=== PATIENT | female | born 1965 | race Caucasian/White ===

== ENCOUNTER → 2017-07-05 | Outpatient (CLI) | payer BC, OTHER ==
[2016-09-27 12:56] VITALS: BP 147/94
[~2017-07-05] MED LIST: DULO60CA6 PO; ESTR0.62 PO; HYDR-971 PO; METH-37 PO; MULT1TAB52 PO; OMEG1CAP30 PO; ZOLP10TA PO
--- NOTE | 2017-07-09 10:50 | RAD ---
2 AP abdominal radiographs one from 07/05/2017 and the second from 07/09/2017 Clinical indication: Sitz marker test. Comparison: CT abdomen and pelvis July 22, 2014. Findings: Initial AP radiograph of the abdomen on July 05, 2017 demonstrates a nonobstructive bowel gas pattern with a large amount of retained stool throughout the colon. Subsequent AP radiograph 4 days post ingestion of Sitzmarks markers demonstrates 9 Sitzmarks markers in the colon located in the descending and sigmoid colon and at the rectosigmoid junction. There remains a large amount of retained stool throughout the large bowel and rectum. Impression: 1. Sitzmarks marker studies with approximately 9 remaining markers in the descending and sigmoid colon. 2. No radiographic evidence of bowel obstruction, however large amount of retained colonic stool which may contribute to constipation.
== END | disposition home or self-care (01) ==
LOC: RAD 08:09
PROVIDERS: ATTEND Internal Medicine Gastroenterology
DX: K59.00 Constipation, unspecified (principal)
CPT/HCPCS: 74250

== ENCOUNTER → 2017-12-13 | Outpatient (CLI) | payer BC | END | disposition home or self-care (01) | LOC: KCIC MAMMO 08:10 | DX: Z12.31 Encounter for screening mammogram for malignant neoplasm of breast (principal) | CPT/HCPCS: 77063; 77067 ==

== ENCOUNTER → 2019-06-12 | Outpatient (CLI) | payer BC ==
[2016-09-27 12:56] VITALS: BP 147/94
[~2019-06-12] MED LIST changes: +HYDR-3164 PO; -HYDR-971 PO
--- NOTE | 2019-06-12 11:19 | KCIC ---
Bilateral digital screening mammograms with 3-D tomosynthesis: Reason for examination: Routine screening. Comparison is made to previous studies dated 12/13/2017 and 05/29/2015. Bilateral mammograms in CC and oblique projections were obtained with 2-D imaging and 3-D tomosynthesis imaging on a Siemens Inspiration unit and reviewed on the workstation. Interpretation was made with the benefit of CAD. The skin and nipples show no abnormalities. No abnormal axillary lymph nodes are seen. The breast parenchyma is heterogeneously dense. (Breast density: Category C.) There are no dominant masses, suspicious calcifications or architectural distortion. Impression: No evidence of malignancy. Recommend routine screening. Your patient's mammogram demonstrates that she has dense breast tissue (breast density category C or D), which could hide abnormalities, and if she has other risk factors for breast cancer that have been identified, she might benefit from supplemental screening tests that may be suggested by you as her ordering physician. Dense breast tissue, in and of itself, is a relatively common condition. Therefore, this information is not provided to cause undue concern, but rather to raise your awareness and to promote discussion with your patient regarding the presence of other risk factors, in addition to dense breast tissue. Your patient's mammography results will be sent to her. BI-RAD Category 1: Negative. "Our facility is accredited by the [employer] Mammography [employer]." This patient's information has been entered into a reminder system for the patient to be notified with the results of her examination and a target date for the next mammogram. Electronically signed by: Roxane Huff MD (06/12/2019 11:17 AM) [facility]
== END | disposition home or self-care (01) ==
LOC: KCIC MAMMO 08:45
DX: Z12.31 Encounter for screening mammogram for malignant neoplasm of breast (principal)
CPT/HCPCS: 77063; 77067

== ENCOUNTER → 2021-10-29 | Outpatient (CLI) | payer BC ==
[2021-10-29] VITALS (11 sets, daily range): BP systolic 84–115; BP diastolic 59–82
[~2021-10-29] VITALS: Ht 165.1 cm; Wt 81.8 kg
[~2021-10-29] MED LIST changes: +AMIT75TA PO; +CETI10TA74 PO; +DEXM30CP PO; +DOXE50CA PO; -DULO60CA6 PO; +DULO60CA7 PO; +HEPARIN for IV BOLUS 10,000 UNIT/10 ML VIAL. IART ONE; +HEPARIN for IV BOLUS 10,000 UNIT/10 ML VIAL. ONE; +IODIXANOL 320 MG/ML 100 ML VIAL. IART ONE; +IODIXANOL 320 MG/ML 100 ML VIAL. ONE; +IV 1/2 NORMAL SALINE 1,000 ML IV SCH; +LEVO125T5 PO; +LIDOCAINE 1% PF 2 ML VIAL. INJ ONE; +LIDOCAINE 1% PF 2 ML VIAL. ONE; +METH454P PO; +MIDAZOLAM HCL/PF 5 MG/5 ML VIAL. IV ONE; +MIDAZOLAM HCL/PF 5 MG/5 ML VIAL. ONE; +MULT-445 PO; -MULT1TAB52 PO; +NITROGLYCERIN 200 MCG/2 ML SYRINGE FOR CATH/VASC LAB. IART ONE; +NITROGLYCERIN 200 MCG/2 ML SYRINGE FOR CATH/VASC LAB. ONE; +PHEN37.53 PO; +SERT100T PO; +VERAPAMIL 5 MG/2 ML VIAL. IART ONE; +VERAPAMIL 5 MG/2 ML VIAL. ONE; +fentaNYL PF VIAL 100 MCG/2 ML VIAL IV ONE; +fentaNYL PF VIAL 100 MCG/2 ML VIAL ONE
[2021-10-29 08:14] LABS: HEMATOCRIT 45.4 % (36.0-47.0); HEMOGLOBIN 15.2 g/dL (12.0-15.5); RED BLOOD COUNT 5.18 x10^6/uL (3.50-5.40); RED CELL DISTRIBUTION WIDTH 14.3 % (11.5-14.5); WHITE BLOOD COUNT 9.7 x10^3/uL (4.0-11.0)
[2021-10-29 08:25] LABS: CALCIUM 9.5 mg/dL (8.5-10.1); GFR 57.1; POTASSIUM 4.1 mmol/L (3.5-5.1)
--- NOTE | 2021-10-29 10:41 | CARD ---
MR#: [id number] Date of Study: 10/29/2021 Ordering Physician: HOLLIE CAST, Referring Physician: HOLLIE CAST Tech: Minal Evangelista RT(R) APPROVED REPORT Patient StatusOUT-PATIENT Shop Worker: Minal Evangelista RT(R) Procedure(s) performed: Aortogram with bilateral lower extremity runoff via right transradial approac h MODERATE SEDATION TIME: 61 MINUTES FLUORO TIME: 3.1 MIN DOSE: 41.8 GYCM2 CONTRAST: 63CC VISI INDICATION FOR PROCEDURE The indication(s) include : Leg pain and abnormal arterial duplex scan suggesting significant periphe ral artery disease. CASE TECHNIQUE After explaining the risks, benefits, and alternative options, informed consent was obtained from the patient. IV conscious sedation was used throughout procedure with appropriate monitoring and was per formed in the presence of a registered nurse who was an independent trained observer other than the jed bush performing the procedure. During this case, Fluoroscopy and low osmolar contrast were used f or imaging. Specimen(s) Removed: No Estimated Blood loss: 10 cc's. PROCEDURE NARRATIVE After explaining the risk, benefits and alternative options, informed consent was obtained from reema martinez. Patient was brought to the cardiac [employer] [facility] and her right wrist was prepped and draped in the us ual fashion after confirming a positive modified Jose's test. Under vascular ultrasound guidance, a rterial access was obtained in the right radial artery and a 6 Slovak sheath was inserted. Subsequen tly, R2P PVI multicurve catheter was advanced under fluoroscopy guidance and with the tip position in the descending aorta, aorto iliac angiography was performed. The catheter was then advanced into th e left external iliac artery and selective left lower extremity angiography was performed. The faheem ter was then withdrawn and then advanced into the right external iliac artery and selective right low er extremity angiography was performed. Patient tolerated the procedure well. Hemostasis was achiev ed using TR band. There were no immediate complications. FINDINGS 1. No significant stenosis involving the distal descending aorta 2. No significant stenosis involving bilateral common and external iliac arteries 3. No significant stenosis involving bilateral common femoral arteries 4. No significant stenosis involving bilateral superficial and deep femoral arteries 5. No significant stenosis involving bilateral popliteal arteries. There is good three vessel runof f below the knee bilaterally Conclusion No significant peripheral artery stenosis Signed by : Hollie Cast, Electronically Approved : 10/29/2021 10:41:19
--- NOTE | 2021-10-29 12:53 | NUR ---
TR band dc'd. arm board reapplied. Pt ambulated and tolerated PO. Discharge instructions reviewed with pt and family. PIV left intact for Echo.
--- NOTE | 2021-10-29 13:00 | NUR ---
Discharge Note: CAROLYN LEVI Discharge instructions and discharge home medications reviewed with Patient and a copy given. All questions have been answered and understanding verbalized. The following instructions and handouts were given: radial site care, sedation, return to work form Pt taken to echo suite prior to leaving hospital, peripheral IV site will be dc'd after that exam. Patient discharged to Home or Self Care with Spouse via Wheelchair NATALI RN Addendum: 10/29/21 at 1308 by ANNA BRANNON RN Amended: Links added.
--- NOTE | 2021-10-29 15:04 | CARD ---
MR#: [id number] Date of Study: 10/29/2021 Ordering Physician: HOLLIE CAST, Referring Physician: HOLLIE CAST Tech: Jossy Mandujano [facility] [[email or web address]] APPROVED REPORT EXAM: Two-dimensional and M-mode echocardiogram with Doppler and color Doppler. Other Information Quality : AverageHR: 77bpm Rhythm : NSR INDICATION Palpitations 2D DIMENSIONS RVDd3.2 (2.9-3.5cm)Left Atrium(2D)4.2 (1.6-4.0cm) IVSd1.0 (0.7-1.1cm)Aortic Root(2D)2.9 (2.0-3.7cm) LVDd3.8 (3.9-5.9cm)LVOT Diameter1.8 (1.8-2.4cm) PWd1.1 (0.7-1.1cm)LVDs2.4 (2.5-4.0cm) FS (%) 37.8 %SV42.7 ml LVEF(%)68.7 (>50%) Aortic Valve AoV Peak Jhonatan.115.3cm/sAoV VTI21.6cm AO Peak GR.5.3mmHgLVOT Peak Jhonatan.102.4cm/s AO Mean GR.2mmHgAVA (VMAX)2.37cm2 Mitral Valve MV E Yzryoufz81.0cm/sMV DECEL [id number] MV A Ovyrmtok54.4cm/sE/A Ratio1.0 Pulmonary Valve PV Peak Ugxeuloq88.6cm/s LEFT VENTRICLE The left ventricle is normal size. There is normal left ventricular wall thickness. The left ventricu lar systolic function is normal. Estimated ejection fraction 60%. There is normal LV segmental wall m otion. The left ventricular diastolic function and filling is normal for age. RIGHT VENTRICLE The right ventricle is normal size. There is normal right ventricular wall thickness. The right ventr icular systolic function is normal. ATRIA The left atrium size is normal. The right atrium size is normal. The interatrial septum is intact wit h no evidence for an atrial septal defect or patent foramen ovale as noted on 2-D or Doppler imaging. AORTIC VALVE The aortic valve is normal in structure and function. Doppler and Color Flow revealed no significant aortic regurgitation. There is no significant aortic valvular stenosis. MITRAL VALVE The mitral valve is normal in structure and function. There is no evidence of mitral valve prolapse. There is no mitral valve stenosis. Doppler and Color-flow revealed mild mitral regurgitation. TRICUSPID VALVE The tricuspid valve is normal in structure and function. Doppler and Color Flow revealed no tricuspid valve regurgitation noted. There is no tricuspid valve stenosis. PULMONIC VALVE The pulmonary valve is normal in structure and function. Doppler and Color Flow revealed no pulmonic valvular regurgitation. GREAT VESSELS The aortic root is normal in size. The ascending aorta is normal in size. The IVC is normal in size a nd collapses >50% with inspiration. PERICARDIAL EFFUSION There is no evidence of significant pericardial effusion. Critical Notification Critical Value: No <Conclusion> The left ventricular systolic function is normal. Estimated ejection fraction 60%. There is normal LV segmental wall motion. Mild mitral regurgitation. There is no evidence of significant pericardial effusion. Signed by : Hollie Cast, Electronically Approved : 10/29/2021 15:04:00
== END | disposition home or self-care (01) ==
LOC: CCL 07:11
PROVIDERS: ATTEND Internal Medicine Cardiovascular Disease
DX: I73.9 Peripheral vascular disease, unspecified (principal); R06.09 Other forms of dyspnea; R00.2 Palpitations; K21.9 Gastro-esophageal reflux disease without esophagitis; F41.9 Anxiety disorder, unspecified; F32.9 Major depressive disorder, single episode, unspecified; Z79.899 Other long term (current) drug therapy; Z90.49 Acquired absence of other specified parts of digestive tract; Z90.710 Acquired absence of both cervix and uterus; Z98.890 Other specified postprocedural states; Z72.89 Other problems related to lifestyle; Z88.0 Allergy status to penicillin; Z88.1 Allergy status to other antibiotic agents; Z88.8 Allergy status to other drugs, medicaments and biological substances
CPT/HCPCS: 36246; 36415; 75625; 75716; 76937; 80048; 85027; 85610; 93306; 99152; 99153; C1769; C1887; C1894; J1644; J2250; J3010; J3490; Q9967

== ENCOUNTER 2022-03-26 13:19 | Emergency (ER) | payer BC ==
[~2022-03-26] VITALS: Ht 165.1 cm; Wt 84.0 kg
[~2022-03-26 13:19] MED LIST changes: -HEPARIN for IV BOLUS 10,000 UNIT/10 ML VIAL. IART ONE; -HEPARIN for IV BOLUS 10,000 UNIT/10 ML VIAL. ONE; -IODIXANOL 320 MG/ML 100 ML VIAL. IART ONE; -IODIXANOL 320 MG/ML 100 ML VIAL. ONE; -IV 1/2 NORMAL SALINE 1,000 ML IV SCH; -LIDOCAINE 1% PF 2 ML VIAL. INJ ONE; -LIDOCAINE 1% PF 2 ML VIAL. ONE; -MIDAZOLAM HCL/PF 5 MG/5 ML VIAL. IV ONE; -MIDAZOLAM HCL/PF 5 MG/5 ML VIAL. ONE; -NITROGLYCERIN 200 MCG/2 ML SYRINGE FOR CATH/VASC LAB. IART ONE; -NITROGLYCERIN 200 MCG/2 ML SYRINGE FOR CATH/VASC LAB. ONE; -VERAPAMIL 5 MG/2 ML VIAL. IART ONE; -VERAPAMIL 5 MG/2 ML VIAL. ONE; -fentaNYL PF VIAL 100 MCG/2 ML VIAL IV ONE; -fentaNYL PF VIAL 100 MCG/2 ML VIAL ONE
[2022-03-26 13:41] VITALS: BP 131/71
--- NOTE | 2022-03-26 13:58 | PHYS DOC ---
Past Medical History Past Medical History: Anxiety, Diverticulosis, Hypothyroid Past Surgical History: No Surgical History Additional Past Surgical Histo: GONZALO CARPAL TUNNEL RELEASE Smoking Status: Never Smoker Alcohol Use: Rarely Drug Use: None General Adult EDM: Chief Complaint: FOOT INJURY PAIN HPI: HPI: Patient is a 57 year old female with history of anxiety presenting to the ED today complaining of 7 out of 10 right ankle/foot pain, symptoms began after she fell down 2 steps. Patient denies any loss of consciousness. Denies hitting her head or neck on the ground. Denies any neck pain, mid or low back pain. Describes the pain as sharp and intermittent worse on weightbearing. She states she heard a pop sound from the ankle. Review of Systems: Review of Systems: Constitutional: Denies fever or chills. [] Musculoskeletal: Reports ankle/right foot pain denies back pain Integument: Denies rash. [] Neurologic: Denies headache, focal weakness or sensory changes. [] Psychiatric: Denies depression or anxiety. [] Heart Score: C/O Chest Pain: N/A Risk Factors: Risk Factors: DM, Current or recent (<one month) smoker, HTN, HLP, family history of CAD, obesity. Risk Scores: Score 0 - 3: 2.5% MACE over next 6 weeks - Discharge Home Score 4 - 6: 20.3% MACE over next 6 weeks - Admit for Clinical Observation Score 7 - 10: 72.7% MACE over next 6 weeks - Early Invasive Strategies Allergies: Allergies: Allergies Coded Allergies Type Severity Reaction Last Updated Verified Penicillins Allergy Intermediate 10/29/21 Yes adhesive Allergy Intermediate Rash 10/29/21 No amoxicillin Allergy Intermediate Itching,rash 10/29/21 No nitrofurantoin Allergy Intermediate Hives 10/29/21 No tizanidine Allergy Intermediate hallucinations 10/29/21 Yes erythromycin base Adverse Reaction Intermediate severe GI upset 10/29/21 Yes ketorolac Adverse Reaction Intermediate Palpitations 10/29/21 No Physical Exam: PE: Constitutional: Well developed, well nourished, no acute distress, non-toxic appearance. [] Skin: Warm, dry, no erythema, no rash. [] Back: No tenderness, no CVA tenderness. [] Extremities: Right foot and right ankle with no obvious deformity. Soft tissue swelling noted on the right lateral ankle and foot. Tenderness on palpation of the right lateral ankle. No navicular bone tenderness, no tenderness of the base of the fifth metatarsal of the right foot. +2 right pedal pulse. Range of motion is intact to the right foot and ankle as well as toes. Cap refill less than 2 seconds to right toes. Neurologic: Alert and oriented X 3, normal motor function, normal sensory function, no focal deficits noted. [] Psychologic: Affect normal, judgement normal, mood normal. [] Current Patient Data: Vital Signs: Vital Signs Date Time Temp Pulse Resp B/P (MAP) Pulse Ox O2 Delivery O2 Flow Rate FiO2 03/26/22 13:41 98.0 110 20 131/71 (91) 98 Room Air 98.0 EKG: EKG: [] Radiology/Procedures: Radiology/Procedures: []PROCEDURE: FOOT RIGHT 3V EXAM: Right foot, 3 views; right ankle, 3 views. HISTORY: Rolled ankle. Fall. Pain. COMPARISON: None. FINDINGS: 3 views of the right foot and ankle are obtained. There are tiny suspected avulsion fracture fragments inferior to the lateral malleolus, of uncertain chronicity. The ankle mortise is intact. No osteochondral lesion is seen. There is a small plantar spur. IMPRESSION: Tiny suspected avulsion fracture fragments inferior to the lateral malleolus, of uncertain chronicity. Correlate for pain in this location. Electronically signed by: Shonna Galvez MD (03/26/2022 2:05 PM) [id number] DICTATED and SIGNED BY: SHONNA GALVEZ MD DATE: 03/26/22 1403 Course & Med Decision Making: Course & Med Decision Making Pertinent Labs and Imaging studies reviewed. (See chart for details) This a 57-year-old female patient presented to the ED today to be evaluated a fter falling down 2 steps. Patient is complaining of right foot/right ankle pain. Right foot/right ankle x-rays interpreted by radiologist were noted for Tiny suspected avulsion fracture fragments inferior to the lateral malleolus, of uncertain chronicity. Correlate for pain in this location. Patient has pain to this region. Patient was placed in a stirrup splint by the ED RN, neurovascular exam done by me post splinting is normal. Ice elevation encouraged. Follow-up with Ortho, patient given contact information to call on Monday and set up a follow-up appointment. Dragon Disclaimer: Yoan Disclaimer: This electronic medical record was generated, in whole or in part, using a voice recognition dictation system. Departure Departure Impression: Primary Impression: Fall down steps Qualified Codes: W10.8XXA - Fall (on) (from) other stairs and steps, initial encounter Additional Impression: Fractured lateral malleolus Qualified Codes: S82.64XA - Nondisplaced fracture of lateral malleolus of right fibula, initial encounter for closed fracture Disposition: HOME / SELF CARE / HOMELESS Condition: STABLE Referrals: SETH GRESHAM (PCP) RUKHSANA RODRIGUEZ II, MD Call his office on Monday and set up a follow up appointment Patient Instructions: Ankle Fracture with Rehab-Sports[facility] Additional Instructions: You were evaluated in the emergency room and noted to have an avulsion fracture of your lateral malleolus. We encourage you to contact the provided orthopedic doctor on Monday morning and set up a follow-up appointment. Try to ice and elevate the extremity. Take the prescribed pain medication as needed for pain. Scripts Hydrocodone Bit/Acetaminophen (HYDROCODONE-APAP 5-325 ) 1 Tab Tablet 1 TAB PO PRN Q6HRS PRN for PAIN, #14 TAB 0 Refills Prov: CHRISTO GUNTER APRN 03/26/22 CHRISTO GUNTER APRN March 26, 2022 13:57
--- NOTE | 2022-03-26 14:07 | RAD ---
EXAM: Right foot, 3 views; right ankle, 3 views. HISTORY: Rolled ankle. Fall. Pain. COMPARISON: None. FINDINGS: 3 views of the right foot and ankle are obtained. There are tiny suspected avulsion fractur e fragments inferior to the lateral malleolus, of uncertain chronicity. The ankle mortise is intact. No osteochondral lesion is seen. There is a small plantar spur. IMPRESSION: Tiny suspected avulsion fracture fragments inferior to the lateral malleolus, of uncertai n chronicity. Correlate for pain in this location. Electronically signed by: Shonna Howell MD (03/26/2022 2:05 PM) [id number]
[2022-03-26] MEDS ORDERED: HYDR-2761 PO (14:28)
== END 2022-03-26 15:32 | disposition home or self-care (01) ==
LOC: ER 13:19
DX: S82.64XA Nondisplaced fracture of lateral malleolus of right fibula, initial encounter for closed fracture (principal); E03.9 Hypothyroidism, unspecified; W10.8XXA Fall (on) (from) other stairs and steps, initial encounter; Y93.89 Activity, other specified; Y92.89 Other specified places as the place of occurrence of the external cause; Y99.8 Other external cause status
CPT/HCPCS: 29515; 73610; 73630; 99284